=== PATIENT | male | born 1945 | race Caucasian/White ===

== ENCOUNTER → 2022-01-02 | Outpatient (CLI) | payer MEDICARE, OTHER, SELFPAY ==
[2022-01-02 18:14] LABS: Absolute Lymphocyte Count 1.51 X10^3/uL (0.83-4.51); Absolute Neutrophil Count 3.2 X10^3/uL (2.0-7.7); Basophil# 0.06 X10^3/uL; Eosinophil# 0.28 X10^3/uL; Eosinophils% 4.9 % (0-5); Hematocrit 41.4 % (40-54); Hemoglobin 13.5 g/dL (13.0-16.5); Lymphocyte # 1.51 X10^3/ul (0.83-4.51); Lymphocyte % 26.4 % (19-41); Mean Corp Hgb Conc 32.6 g/dL (32-36); Mean Corpuscular Hgb 31.7 pg (27.0-32.0); Mean Corpuscular Volume 97.2 fL (80-94); Mean Platelet Vol. 10.2 fl (6.2-12.0); Monocyte# 0.62 X10^3/uL; Monocyte% 10.8 % (0-10); NRBC Flagged by Analyzer 0 % (0-5); Neutrophil # 3.23 X10^3/uL (2.7-7.7); Neutrophil % 56.6 % (47-70); Platelet Count 242 K/mm3 (150-450); RBC Distribution Width CV 13.8 % (11.6-14.6); RBC Distribution Width SD 49.4 fl (35.1-43.9); Red Blood Count 4.26 M/mm3 (4.6-6.2); White Blood Count 5.7 K/mm3 (4.4-11.0)
[2022-01-02 18:24] LABS: Vitamin B12 880 pg/mL (211-911); Vitamin D,25 Hydroxy 42.7 ng/mL
[2022-01-02 18:32] LABS: AST(SGOT) 26 U/L (15-37); Alanine Aminotransfer ALT/SGPT 23 U/L (16-61); Albumin, Serum 3.6 g/dL (3.2-5.0); Alkaline Phosphatase 68 U/L (45-117); Anion Gap 7 (5-15); BUN 13 mg/dL (7-18); BUN/Creat Ratio 13.9 RATIO (10-20); Calcium,Total 8.9 mg/dL (8.5-10.1); Chloride 106 mmol/L (98-107); Creatinine, Serum 0.93 mg/dL (0.70-1.30); EST Glomerular Filtration Rate 84 mL/min (>60); Est Glom Filt Rate - Afr Amer 101 mL/min (>60); Ferritin 46 ng/mL (26-388); Globulin 3.6 g/dL (2.2-4.2); Glucose 87 mg/dL (74-106); Potassium 3.8 mmol/L (3.5-5.1); Protein, Total 7.2 g/dL (6.4-8.2); Sodium Level 141 mmol/L (136-145)
== END | disposition home or self-care (01) ==
PROVIDERS: Visit Provider Family Medicine
DX: R53.83 Other fatigue (principal)
CPT/HCPCS: 36415; 80053; 82306; 82607; 82728; 84443; 85025

== ENCOUNTER 2023-07-15 17:03 | Emergency (ER) | payer MEDICARE, OTHER, SELFPAY ==
[2023-07-15 17:04] VITALS: BP 164/111; PULSE 92; RESP 18; TEMP 36.1; O2SAT 96; BMI 21.7
--- NOTE | 2023-07-15 17:56 | CT_ITS ---
STUDY: CT BRAIN WITHOUT CONTRAST REASON FOR EXAM: Male, 77 years old. head trauma Individualized dose optimization techniques were used for this CT. TECHNIQUE: Transaxial CT imaging of the brain was performed without administration of intravenous contrast material. COMPARISON: None FINDINGS: There are calcifications around the carotid artery. These are noted in the cavernous carotid arteries. Normal calvarium. Normal soft tissues. Prominent extra-axial spaces. There is mild cerebral atrophy with widening of the extra-axial spaces and ventricular dilatation. There are areas of decreased attenuation within the white matter tracts of the supratentorial brain, consistent with microvascular disease changes. Normal basal ganglia and thalami. Normal brainstem. There is mild cerebellar atrophy. There is no intracranial hemorrhage. There are no findings of an acute ischemic infarction. Normal visualized paranasal sinuses. ASPECTS Score for Acute Strokes: 10 CT/Brain/Head without Contrast IMPRESSION: There are no acute findings. Electronically Signed: Jori Brambila MD at 18:37 EDT ,
--- NOTE | 2023-07-15 17:56 | CT_ITS ---
EXAM: CT CERVICAL SPINE WITHOUT INTRAVENOUS CONTRAST CLINICAL INDICATION: trauma TECHNIQUE: Helically acquired images were obtained of the cervical spine without intravenous contrast. 2D reformatted images were reviewed. This CT exam was performed using one or more of the following dose reduction techniques: automated exposure control, adjustment of the mA and/or kV according to patient size, and/or use of iterative reconstruction technique. RADIATION DOSE: CTDIvol = 16.51 mGy, DLP = 332.89 mGy-cm COMPARISON: No relevant prior studies available. FINDINGS: VERTEBRAE: Unremarkable. No fracture. No traumatic subluxation. No discrete lytic or blastic abnormality. Normal alignment. Normal craniocervical junction and cervicothoracic junction. DISCS/SPINAL CANAL/NEURAL FORAMINA: Unremarkable. Disc heights are preserved. No critical stenosis. SOFT TISSUES: Unremarkable. No prevertebral soft tissue swelling. LYMPH NODES: Unremarkable. No cervical adenopathy. LUNG APICES: Unremarkable as visualized. Clear. CT/Spine Cervical without Contras IMPRESSION: No evidence of acute cervical spinal fracture or spondylolisthesis. Electronically Signed: Jori Brambila MD at 18:42 EDT ,
--- NOTE | 2023-07-15 17:59 | EDS_ITS ---
HPI History of Present Illness Chief Complaint: Dizziness Narrative Narrative: 77-year-old male with history of dementia presenting for evaluation of lightheadedness. He describes it as woozy. He states that his physician told him he should walk about 5000 steps a day and has been doing. He states he did this morning and when he came home he was woozy. His noticed him and said he looked off balance. He describes it as nonvertiginous in nature. Patient states has been eating and drinking normally. Has been making normal urine and stool. Has not had any fever or chills. He is not coughing or short of breath. He had 1 episode of nausea and vomiting today. This was just prior to arrival and states he is not nauseous anymore. His states he is on leqembi which is a new medication for dementia and he received an infusion of this about 2 weeks ago. It was told of the patient's and he that there is an association with head bleeding. Apparently 1/5 people could have brain swelling and bleeding. Patient for is concerned of this. Patient is not on any blood thinners and is recommended that while he is on his medication he cannot have any tPA and he cannot have any anticoagulation or aspirin. Patient denies sever He has not had any chest pain. PFSH PFSH Home Medications ondansetron 4 mg disintegrating tablet 4 mg PO Q8H PRN PRN Nausea #14 tabs 07/15/23 [Rx Last Taken Unknown] Allergy/AdvReac Type Severity Reaction Status Date / Time bee venom protein (honey bee) Allergy Severe Anaphylaxis Verified 07/15/23 17:07 Social History Smoking Status: Never smoker ROS ROS ED Constitutional Constitutional ED: Denies chills, fever(s) or sweats Eyes Eyes: Denies blurry vision or change in vision ENT ENT ED: Denies ear pain or sore throat Cardiovascular Cardiovascular: Reports other Details: Lightheadedness ; Denies chest pain, palpitations or racing heartbeat Respiratory/Chest Respiratory/Chest: Denies cough, dyspnea or sputum Gastrointestinal Gastrointestinal: Reports nausea and vomiting; Denies abdominal pain, constipation or diarrhea Genitourinary Genitourinary ED: Denies dysuria, hematuria or urinary frequency Musculoskeletal Musculoskeletal: Denies arthralgias, myalgias or neck pain Integumentary Denies abscess, Abrasions or rash Neurologic Neurologic: Denies headache(s), paresthesias or weakness Psychiatric Psychiatric: Denies anxiety, depression, suicidal ideation or suicidal thoughts Endocrine Endocrinology: Denies polydipsia or polyuria EXAM Physical Exam Const Vital Signs: 07/15/23 17:04 07/15/23 17:04 07/15/23 18:45 Temperature 97 F L Temperature Source Temporal Pulse Rate 92 Pulse Rate [Lying] 71 Pulse Rate [Sitting (for 1 minute prior to obtaining)] 76 Pulse Rate [Standing (for 1 minute prior to obtaining)] 88 Respiratory Rate 18 Respiratory Effort Normal Non-Labored Respiratory Pattern Normal Blood Pressure 164/111 H Blood Pressure [Lying] 93/58 L Blood Pressure [Sitting (for 1 minute prior to obtaining)] 107/66 Blood Pressure [Standing (for 1 minute prior to obtaining)] 105/62 Blood Pressure Mean 128 Blood Pressure Mean [Lying] 69 Blood Pressure Mean [Sitting (for 1 minute prior to obtaining)] 79 Blood Pressure Mean [Standing (for 1 minute prior to obtaining)] 76 Pulse Ox 96 Oxygen Delivery Method Room Air 07/15/23 19:04 07/15/23 20:14 Temperature 97.2 F L Temperature Source Pulse Rate 71 84 Pulse Rate [Lying] Pulse Rate [Sitting (for 1 minute prior to obtaining)] Pulse Rate [Standing (for 1 minute prior to obtaining)] Respiratory Rate 19 H 16 Respiratory Effort Respiratory Pattern Blood Pressure 101/70 97/62 Blood Pressure [Lying] Blood Pressure [Sitting (for 1 minute prior to obtaining)] Blood Pressure [Standing (for 1 minute prior to obtaining)] Blood Pressure Mean 80 73 Blood Pressure Mean [Lying] Blood Pressure Mean [Sitting (for 1 minute prior to obtaining)] Blood Pressure Mean [Standing (for 1 minute prior to obtaining)] Pulse Ox 97 99 Oxygen Delivery Method Room Air General Appearance ED: NAD; Negative for pallor HEENT Reports TM's clear and moist mucous membranes HEENT Narrative: Superficial abrasion noted over the left medial supraorbital ridge and to the nasal bone proximally. No obvious deformity. No active bleeding Tympanic Membrane ED: Yes TM's clear Eyes PERRL and EOMs intact bilaterally General Eye ED: Negative for pale conjunctiva Chest Wall inspection of chest normal Resp normal respiratory effort and clear to auscultation bilaterally Auscultation: Negative for rales, rhonchi or wheezes Cardio regular rate and regular rhythm GI normal to inspection, nondistended, normoactive bowel sounds Extremity normal to inspection Neuro oriented x3 and CN's II-XII intact bilaterally Sensorium / Orientation: alert Psych mental status grossly normal Skin no rashes or lesions noted General Skin Exam: Negative for jaundice or pallor MDM MDM MDM Narrative Medical decision making narrative: Patient presenting with lightheadedness. His is concerned this is associated with a medication leqembi. She states this is associated with head bleeding. Patient had an MRI at baseline prior to starting the medication 2 weeks ago. She states they make him stay there for 3 hours after the infusion to watch for allergic reaction. He did not have 1. As far as the patient knows has not any risk of increased bleeding around the time of the injection. She states this is more generalized. Patient was able to walk today and went 5000 steps. When he came home he was lightheaded. states it lasted about 5 minutes. While I was interviewing the patient I asked him how he sustained the fresh abrasions/contusions to the face and he states he thinks a stick hit him in the face while he was mowing the lawn. His states that she saw him through the window and he was out mowing the lawn and she witnessed him going over some branches which he should not run over and one of them flew up and hit him in the head. He does not recall the event. He recalls putting the lawnmower away which is a push mower. He recalls coming back in the house. He does not recall all being struck in the face and the event surrounding. He does not believe he lost consciousness. He does not believe he sustained any other trauma on his walking today. Blood pressure was normal the patient's heart rate went up about 18 points. He given a liter normal saline. CBC shows normal white blood cell count of 8.9. Hemoglobin 14.4. I suspect the patient is slightly dehydrated. Patient feels well on reevaluation. CT brain and cervical spine were negative. I did rehabilitation counsellor the that with his memory issues we should be more cautious around the mechanical equipment at home. She denies understanding. Return precautions were discussed. Impression: 1. Lightheadedness 2. Nausea/vomiting?resolved 3. Closed head injury 4. Superficial abrasion of the left forehead Lab Data Labs: Laboratory Results - last 24 hr 07/15/23 07/15/23 17:52 18:41 WBC 8.9 RBC 4.33 L Hgb 14.4 Hct 42.5 MCV 98.2 H MCH 33.3 H MCHC 33.9 RDW Std Deviation 47.2 H RDW Coeff of Fernando 13.0 Plt Count 279 MPV 8.7 Immature Gran % (Auto) 0.300 Neut % (Auto) 77.1 H Lymph % (Auto) 13.1 L [place] % (Auto) 7.2 Eos % (Auto) 1.7 Baso % (Auto) 0.6 Absolute Neuts (auto) 6.9 Absolute Lymphs (auto) 1.17 Nucleated RBC % 0 Sodium 135 L Potassium 3.6 Chloride 102 Carbon Dioxide 28.0 Anion Gap 5 BUN 19 H Creatinine 1.00 Estim Creat Clear Calc 60.20 Est GFR (MDRD) Af Amer 93 Est GFR (MDRD) Non-Af 77 BUN/Creatinine Ratio 19.0 Glucose 124 H Calcium 8.2 L Troponin I High Sens 5 Urine Color Yellow Urine Clarity Clear Urine pH 6.0 Ur Specific [place] 1.025 Urine Protein 30 H Urine Glucose (UA) Normal Urine Ketones 15 H Urine Occult Blood Negative Urine Nitrite Negative Urine Bilirubin 1 H Urine Urobilinogen 1 H Ur Leukocyte Esterase 25 H Urine RBC 0 SEEN Urine WBC 0 SEEN Ur Squamous Epith Cells 0 SEEN Urine Bacteria 0 SEEN Urine Mucus 2+ Radiography Diagnostic Testing: Clinical Impression(s) from Imaging Studies Brain CT 07/15/23 17:56 IMPRESSION: There are no acute findings. Electronically Signed: Jori Brambila MD at 18:37 EDT , Cervical Spine CT 07/15/23 17:56 IMPRESSION: No evidence of acute cervical spinal fracture or spondylolisthesis. Electronically Signed: Jori Brambila MD at 18:42 EDT , Discharge Plan Triage Chief Complaint: Dizziness ED Provider: Julian Fitzgerald Dx/Rx/DC Orders Instructions: ED Dehydration (Adult), ED Dizziness, Uncertain Cause Prescriptions: New ondansetron 4 mg tablet,disintegrating 4 mg PO Q8H PRN PRN (Reason: Nausea) Qty: 14 0RF Primary Care Provider: Reed Fofana Referrals: Reed Fofana MD [Primary Care Provider] - Disposition Disposition: Home, Self Care Discharge Date/Time: 07/15/23 20:33
[2023-07-15 18:06] LABS: Absolute Lymphocyte Count 1.17 X10^3/uL (0.83-4.51); Absolute Neutrophil Count 6.9 X10^3/uL (2.0-7.7); Basophil# 0.05 X10^3/uL; Basophil% 0.6 % (0-1); Eosinophil# 0.15 X10^3/uL; Eosinophils% 1.7 % (0-5); Hematocrit 42.5 % (40-54); Hemoglobin 14.4 g/dL (13.0-16.5); Lymphocyte # 1.17 X10^3/ul (0.83-4.51); Lymphocyte % 13.1 % (19-41); Mean Corp Hgb Conc 33.9 g/dL (32-36); Mean Corpuscular Hgb 33.3 pg (27.0-32.0); Mean Corpuscular Volume 98.2 fL (80-94); Mean Platelet Vol. 8.7 fl (6.2-12.0); Monocyte# 0.64 X10^3/uL; Monocyte% 7.2 % (0-10); NRBC Flagged by Analyzer 0 % (0-5); Neutrophil # 6.86 X10^3/uL (2.7-7.7); Neutrophil % 77.1 % (47-70); Platelet Count 279 K/mm3 (150-450); RBC Distribution Width SD 47.2 fl (35.1-43.9); Red Blood Count 4.33 M/mm3 (4.6-6.2); White Blood Count 8.9 K/mm3 (4.4-11.0)
[2023-07-15 18:20] LABS: Anion Gap 5 (5-15); BUN 19 mg/dL (7-18); Calcium,Total 8.2 mg/dL (8.5-10.1); Chloride 102 mmol/L (98-107); EST Glomerular Filtration Rate 77 mL/min (>60); Est Glom Filt Rate - Afr Amer 93 mL/min (>60); Glucose 124 mg/dL (74-106); Potassium 3.6 mmol/L (3.5-5.1); Sodium Level 135 mmol/L (136-145); Troponin-I HS 5 pg/mL (3.0-78.0)
[2023-07-15 18:45] VITALS: BP 105/62; BP 107/66; BP 93/58; PULSE 71; PULSE 76; PULSE 88
[2023-07-15] MEDS: 0.9% Normal Saline (1000mL) 1,000 ML 999 ML IV (18:53)
[2023-07-15 19:03] LABS: Bacteria 0 SEEN /hpf (None Seen); Red Blood Cells-Urine 0 SEEN /hpf (0-5); Squamous Epithelial Cells - UA 0 SEEN /hpf (0-5); White Blood Cells 0 SEEN /hpf (0-5)
[2023-07-15 19:04] VITALS: BP 101/70; PULSE 71; RESP 19; O2SAT 97
[2023-07-15 19:08] LABS: Color, Urine Yellow (Yellow); Glucose, Dipstick Normal (Normal); Ketone-Dipstick 15 mg/dl (Negative); Leukocyte Esterase-Dipstick 25 /ul (Negative); Nitrite-Dipstick Negative (Negative); Occult Blood-Urine Negative /ul (Negative); Protein-Dipstick 30 mg/dl (Negative); Specific Gravity, Urine 1.025 (1.002-1.030); Urine Clarity Clear (Clear); Urine Urobilinogen 1 mg/dl (Normal)
[2023-07-15 19:11] LABS: Urine Bilirubin Dipstick 1 mg/dL (Negative)
[2023-07-15 19:14] LABS: Mucous, Urine 2+ /hpf (<or=2+)
[2023-07-15 20:14] VITALS: BP 97/62; PULSE 84; RESP 16; TEMP 36.2; O2SAT 99
== END 2023-07-15 20:33 | disposition home or self-care (01) ==
PROVIDERS: Emergency Provider Student in an Organized Health Care Education/Training Program; PCP Family Medicine; Visit Provider Student in an Organized Health Care Education/Training Program
DX: R42 Dizziness and giddiness (principal); F03.90 Unspecified dementia, unspecified severity, without behavioral disturbance, psychotic disturbance, mood disturbance, and anxiety; S00.81XA Abrasion of other part of head, initial encounter; S09.90XA Unspecified injury of head, initial encounter; W20.8XXA Other cause of strike by thrown, projected or falling object, initial encounter; Y93.H2 Activity, gardening and landscaping
CPT/HCPCS: 70450; 72125; 80048; 81001; 84484; 85025; 99284; J7030; A4216

== ENCOUNTER 2023-12-11 09:00 | Outpatient (RCR) | payer MEDICARE, OTHER, SELFPAY ==
--- NOTE | 2023-09-24 09:16 | HP.SP.EVAL ---
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 In the last year to year and a half his short term memory is worse. Medications related to this diagnosis: None Smoking Status: Never smoker Diagnosis Diagnosis: Cognitive deficits, Mild to moderate memory deficit. Pain Is pain an issue with your current prescribed condition?: No Personal Preferred language: Guyanese Patient Allergies Allergies Allergies: Allergies bee venom protein (honey bee) Allergy (Severe, Verified 07/15/23 17:07) Anaphylaxis CLQT CLQT CLQT Administered: Yes CLQT: Cognitive Linguistic Quick Test (CLQT) is a criterion - referenced assessment designed for adults between the ages of 18 and 89 with known or suspected neurological dysfuntions. The CLQT is to assess strength and weaknesses in five cognitive domains. Severity ratings are within normal limits, mild, moderate, severe deficits. The subtests are as follows: Date: 09/19/23 Memory Memory: Moderate CLQT Comments Comments: -: Memory skills: Currently, Jake (patient goes by Sanjeev) has noted in the last 1/5 years that his memory is declining. During the evaluation he repeated the same statement three times. He is still driving and reported that he has not gotten lost yet but uses GPS. He does not take any medication so he doesn't have a daily routine he has to follow. He uses a calendar at home that his completes. He doesn't frequently write information down. He reported that he doesn't really have any memory strategies that he uses consistently. He was unable to recall his address as well as his age was one year off (77 vs 78) Completion of testing will be added as a goal. Reference: Neuro-QoL instrument In past 7 days I had to read something several times to understand it: Rarely (once) My thinking was slow: Rarely (once) I had to work really hard to pay attention or i would make a mistake: Never I had trouble concentrating: Never How much DIFFICULTY do you currently reading & following complex instructions (e.g. directions for new medication: A little planning for & keeping appts that are not part of weekly routine: Somewhat managing your time to do most of your daily activities: None learning new tasks or instructions: Somewhat Neuro-QOL Score Raw Score: 33 T - Score: 48.3 Radiation Oncology Patient Plan Plan Plan: Speech therapy is recommended for cognitive deficits including but not limited to recall skills. Recommendations Treatment Warranted: Yes Treatment Warranted: Cognition Progress Prognosis: Good Frequency Frequency: 1x/Week Duration: 2 Months Visits in this POC: 8 Patient/Family Goal Patient/Family Goal: Sanjeev would like to use recall strategies to support his memory. Goals that are Established Determination:: Goals will be added/modified as deemed necessary and appropriate. Therapy will be discontinued when results of re-evaluation indicate therapy is no longer needed or lack of progress has been documented. Goal #1-5 Goal #1: Patient education regarding recall strategies. Goal #2: Sanjeev will demonstrate understanding of recall strategies and use them on 4/5 trials on structured and unstructured tasks on 2/3 sessions. Goal #3: Completion of testing. Education Patient Instruction Patient Education: Diagnosis, Treatment Plan and Goals Person Taught: Patient and Family Teaching Method: Discussion Response to teaching: Verbalize understanding
--- NOTE | 2024-01-08 10:38 | HP.SP.DC ---
ST Discharge Summary Discharged: Discharge: Jake Tomas (?Sanjeev?) is discharged from [facility] speech therapy as of 12/11/23. 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 He was treated for 8 sessions after his evaluation with excellent participation. Therapy focused on using recall strategies and carry over of those strategies. He was using strategies that had been provided to him with increasing accuracy. There were lengthy discussions regarding his driving as he reported that he had gotten lost in a parking lot and had to call his to come get him in which he then followed her home. His was following him to the last few appointments at [facility] to make sure he was able to get to it safely. Please see evaluation and daily notes for complete details. Thank you for allowing me to participate in the care of this patient.
== END 2023-12-11 19:00 | disposition home or self-care (01) ==
LOC: SP 09:00
PROVIDERS: PCP Family Medicine; Referring Provider Family Medicine; Visit Provider Family Medicine
DX: G30.9 Alzheimer's disease, unspecified (principal); F02.A0 Dementia in other diseases classified elsewhere, mild, without behavioral disturbance, psychotic disturbance, mood disturbance, and anxiety; R48.8 Other symbolic dysfunctions
CPT/HCPCS: 92507; 92523

== ENCOUNTER 2024-07-11 10:00 | Outpatient (RCR) | payer MEDICARE, OTHER, SELFPAY ==
--- NOTE | 2024-05-09 12:38 | HP.SP.EVAL ---
Visit History Visit Info Date of Eval: 05/09/24 Visit: 1 Research Support Specialist: LUIS FERNANDO History Attending Doctor: GLADYS SAXENA Referring Doctor: GLADYS SAXENA Reason for Referral: MILD COGNITIVE DIS D/T [facility]ERS. PT HAS RX Medical Diagnosis: Cognitive impairment Previous speech therapy: Yes Results: 09/19/23 to 12/11/23 to address memory deficits. Therapy focused on using recall strategies with good success. Other Relevant Medical History/Diagnoses/Surgery: Patient reported he has always been forgetful but it has progressed in the last 2 years. Smoking Status: Never smoker Diagnosis Diagnosis: Moderate cognitive impairment Pain Is pain an issue with your current prescribed condition?: No Personal Preferred language: Welsh Patient Allergies Allergies Allergies: Allergies bee venom protein (honey bee) Allergy (Severe, Verified 07/15/23 17:07) Anaphylaxis Objective Cog/Ling/Com Test Administered Hswfftxbg-Tsmxhdfffh-Ccsxgxgupxejp Assessment Administered: Yes Asframmzg-Dvbtrelfhb-Cxvfqayktihvz Assessment: Cognitive ? Linguistic skills were evaluated using patient/family interview, skilled observation and informal evaluation through tasks completed by the patient. Orientation Orientation: Person, Place and Birthdate Recall Comments: Patient repeated himself multiple times during the session with no overt awareness of repetition. Cognitive Linguistic Supervision/Saftey Awareness of deficits: Moderate Executive Function Comments Comments: Patient was not able to recall day (Stated Sunday for Sunday), or his age ( stated 76 and he is 78 and he made this error during testing and 2 other comments during evaluation). He was one day off on date and knew the month. He had hesitation on stating his address that he has lived at for 2 years. Currently, Patient continues to drive. This was discussed during the last round of therapy as last summer he was not able to find his way out of a parking lot and had to call his . This will be discussed again as I am concerned with his to call where he is going and recall skills to get home appropriately. CLQT CLQT CLQT Administered: Yes CLQT: Cognitive Linguistic Quick Test (CLQT) is a criterion - referenced assessment designed for adults between the ages of 18 and 89 with known or suspected neurological dysfuntions. The CLQT is to assess strength and weaknesses in five cognitive domains. Severity ratings are within normal limits, mild, moderate, severe deficits. The subtests are as follows: Date: 05/09/24 Memory Memory: Moderate CLQT Comments Analysis: -: Patient had a score of 106 and memory moderate range is from 80-114. For the subtests- he had 7/8 personal facts (missed age) and criterion cut score was 8, story retelling was a 2 (criterion cut score was 5), generative naming score was 5 (criterion cut score was 4), and design memory was 4 ( criterion cut score was 4). He recalled only 1 thing about the story and the became frustrated. With yes/no questions about the story he was able to answer 4/6. He demonstrates deficits in short term recall skills as well as orientation deficits. Reference: Neuro-QoL instrument In past 7 days I had to read something several times to understand it: Very often (several times a day) My thinking was slow: Often (once a day) I had to work really hard to pay attention or i would make a mistake: Often (once a day) I had trouble concentrating: Sometimes (2-3 times) How much DIFFICULTY do you currently reading & following complex instructions (e.g. directions for new medication: Somewhat planning for & keeping appts that are not part of weekly routine: A lot managing your time to do most of your daily activities: A little learning new tasks or instructions: A lot Neuro-QOL Score Raw Score: 19 T - Score: 34.0 Radiation Oncology Patient Plan Plan Plan: Short term therapy is recommended to educate the patient and his on strategies to support his diagnosis in regarding to decreasing memory skills and safety. Recommendations Treatment Warranted: Yes Treatment Warranted: Cognition Progress Prognosis: Good Frequency Frequency: 1x/Week Duration: 4 Weeks Visits in this POC: 4 Patient/Family Goal Patient/Family Goal: Patient wishes to be able to maintain recall skills. Goals that are Established Determination:: Goals will be added/modified as deemed necessary and appropriate. Therapy will be discontinued when results of re-evaluation indicate therapy is no longer needed or lack of progress has been documented. Goal #1-5 Goal #1: Patient and family education regarding memory compensatory strategies, caregiver support and safety awareness. Goal #2: Patient will modify environment at home via implementing memory compensatory strategies within 4 weeks' time of their initial evaluation as reported by patient/. Education Patient has Indicated that the Following Identified Educational Needs: Cognitively Impaired Patient Instruction Patient Education: Diagnosis, Treatment Plan and Goals Person Taught: Patient and Significant Other Response to teaching: Verbalize Understanding and Has Prior Knowledge
--- NOTE | 2024-07-14 09:45 | HP.SP.DC_ITS ---
ST Discharge Summary Discharged: Discharge: Jake Tomas is discharged from speech therapy at [facility] as of July 11, 2024. He attended 4 sessions after his initial evaluation for environmental modification at home via implementing memory compensatory strategies and education regarding memory compensatory strategies, caregiver support and safety awareness. The patient and his were provided with local resources for support groups, online information as well as home modifications such as signs to help patient recall if he ate breakfast so he does not eat repeatedly. During the sessions the patient frequently repeated the same information to therapist without realizing it. I have recommended that the patient discontinue driving. Patient and his were educated that this needs discussed with his physicians as I am only allowed to recommend rather than remove his driving abilities. Patient stated that he has some concerns with his driving as well. His reported that he leaves at the wrong time and goes to the wrong place. It is not known if the patient forgets where he is going or what the appointment is. During a previous round of therapy, he had gotten stuck in a parking lot and was unable to find his way out with his having to drive to him to have him follow her. His has stated in the last month that she feels he can drive around town to get coffee and local places. His doctors? offices are local, and he is still getting confused. Patient and his plan to discuss this with their daughters as well as his physicians. Thank you for allowing me to participate in the care of this patient.
== END 2024-07-11 19:00 | disposition home or self-care (01) ==
LOC: SP 10:00
PROVIDERS: PCP Family Medicine
DX: G30.9 Alzheimer's disease, unspecified (principal); F02.A0 Dementia in other diseases classified elsewhere, mild, without behavioral disturbance, psychotic disturbance, mood disturbance, and anxiety; R48.8 Other symbolic dysfunctions
CPT/HCPCS: 92507; 92523; 97129; 97130